=== PATIENT | male | born 1960 | race Caucasian/White ===

== ENCOUNTER 2017-02-12 06:20 | Day surgery (SDC) | payer BC ==
[2017-02-11 11:15] LABS: BASOPHILS 0.4 %; BASOPHILS ABSOLUTE 0.04 10/3/uL (0.0-0.16); EOSINOPHILS 5.4 %; EOSINOPHILS ABSOLUTE 0.58 10/3/uL (0.0-0.53); HEMATOCRIT 44.5 % (40.0-51.0); HEMOGLOBIN 15.2 g/dL (13.6-17.8); IMMATURE GRANULOCYTES 0.2 %; IMMATURE GRANULOCYTES ABSOLUTE 0.02 10/3/uL (0.0-0.11); LYMPHOCYTES 23.6 %; LYMPHOCYTES ABSOLUTE 2.55 10/3/uL (0.67-4.30); MEAN CORPUS HGB CONC 34.2 g/dL (32.0-36.0); MEAN CORPUSCULAR HEMOGLOB 32.5 pg (26.0-34.0); MEAN CORPUSCULAR VOLUME 95.3 fL (80-100); MEAN PLATELET VOLUME 9.1 fL (9.2-13.0); MONOCYTES 7.9 %; MONOCYTES ABSOLUTE 0.86 10/3/uL (0.21-1.20); NEUTROPHILS 62.5 %; NEUTROPHILS ABSOLUTE 6.77 10/3/uL (2.02-8.40); PLATELET COUNT 189 10/3/uL (150-400); RBC DISTRIBUTION WIDTH 12.6 % (12.0-16.0); RED CELL COUNT 4.67 10/6/uL (4.7-6.1)
[2017-02-11 11:16] LABS: MANUAL DIFF NO %; WHITE BLOOD CELLS 10.8 10/3/uL (4.5-10.5)
[2017-02-11 11:30] LABS: BUN (BLOOD UREA NITROGEN) 15 MG/DL (6-23); CALCIUM, SERUM 9.3 MG/DL (8.5-10.4); CHLORIDE, SERUM 104 MMOL/L (96-112); CO2 (CARBON DIOXIDE) 30 MMOL/L (24-34); CREATININE 1.08 MG/DL (0.70-1.30); GFR AFRICAN AMERICAN 88 ML/MIN (>=60); GFR NON AFRICAN AMERICAN 76 ML/MIN (>=60); POTASSIUM, SERUM 4.5 MMOL/L (3.5-5.3); SODIUM, SERUM 141 MMOL/L (135-148)
[2017-02-11 11:32] LABS: GLUCOSE, SERUM 115 MG/DL (60-99)
--- NOTE | ~2017-02-12 | OP ---
Record Of Operation [address] [facility] [place]. [address] NAME: THUY BUI : 60 STATUS : REG [facility] [place] PAT#: [id number] AGE: 56 ADM/REG DATE : 02/12/17 MR#: [id number] REPORT SERV DATE: 02/12/17 DICTATED BY: ALFREDO LAGUNA DATE: 02/12/17 REPORT STATUS : Draft TRANSCRIBED BY: MODL DATE: 02/12/17 DATE OF PROCEDURE: 02/12/2017 PREOPERATIVE DIAGNOSES: 1. Bilateral chronic frontal sinusitis. 2. Bilateral chronic maxillary sinusitis. 3. Bilateral left chronic ethmoid sinusitis. 4. Left nasal polyp. POSTOPERATIVE DIAGNOSES: 1. Bilateral chronic frontal sinusitis. 2. Bilateral chronic maxillary sinusitis. 3. Bilateral left chronic ethmoid sinusitis. 4. Left nasal polyp. PROCEDURES: 1. Bilateral endoscopic frontal sinusotomy. 2. Bilateral endoscopic maxillary sinusotomy. 3. Left endoscopic anterior ethmoidectomy. 4. Left endoscopic polypectomy. SURGEON: Alfredo Laguna MD. ANESTHESIA: General endotracheal anesthesia. ESTIMATED BLOOD LOSS: 10 mL. COMPLICATIONS: None. SPECIMEN: 1. Right nasal contents. 2. Left nasal contents. FINDINGS: The patient had a large ethmoid polyp on the left that filled in nasal cavity completely, went all the way back to the nasopharynx. There was also polypoid disease on the right side in the same area. I was able to successfully open both frontal and both maxillary sinuses well and I decided to remove the left anterior ethmoid as it was almost completely taken over with polyp disease. STATEMENT OF MEDICAL NECESSITY: This is a 56-year-old male who came to me with history of right ear pressure, facial pressure, and recurrent sinusitis. I treated him with a 3-week course of antibiotics and steroids which he minimally improved. CT scan following that showed disease in the frontal sinus outflow tracts bilaterally as well as the maxillary sinuses. It also revealed a large polyp in the left side which was also visible on nasal endoscopy in clinic. Given this failure of conservative medical management, I recommended the above procedure. Record Of Operation [place] [facility] [place]. [address] NAME: THUY BUI : 60 STATUS : REG [facility] [place] PAT#: [id number] AGE: 56 ADM/REG DATE : 02/12/17 MR#: [id number] REPORT SERV DATE: 02/12/17 DICTATED BY: ALFREDO LAGUNA DATE: 02/12/17 REPORT STATUS : Draft TRANSCRIBED BY: HERACLIO DATE: 02/12/17 STATEMENT OF OPERATION: The patient was brought to the operating room in supine position, transferred to the operating table. All pressure points were padded and general endotracheal anesthesia was established. Both sides of the nose were prepared with 4% cocaine-soaked pledgets. They were allowed to stay in place while the patient was draped out. The right side was removed first then injected 3 mL of 1% lidocaine with epinephrine in the lateral nasal wall, root of the middle turbinate and face of the middle turbinate. I then gently fractured the turbinate medially. There was some polypoid disease in the frontal sinus outflow tract region. I was able to advance balloon and lighted wire into the frontal sinus. I had successful focal transillumination. I inflated the frontal sinus outflow tract twice to 12 atmospheres for 3 seconds each. I also removed a small polyp from the outflow tract. Then with the 45-degree scope, I was able to visualize a wide open frontal sinus tract all the way into the frontal sinus. Next, I cannulated the right maxillary sinus. Again with the same technique, I performed two separate inflations. I got good blanching and opening of the uncinate process on that side with verification with tansillumination. Next, I turned my attention to the right side of the nose. I placed Afrin-soaked pledgets in the right side of the nose. I turned my attention to the left side of the nose. Immediately, evident in the anterior nasal cavity with a large polyp. Using a microdebrider, I removed this almost completely while keeping intact inferior turbinate, the middle turbinate, and the nasal septum. Once this was removed, I gently medialized the middle turbinate. There was some polypoid disease in the anterior ethmoid area as well. I was able to cannulate the frontal sinus again with focal point transillumination. I dilated the frontal sinus outflow tract twice to 12 atmospheres for 3 seconds each. Again with the 45-degree scope, I was able to verify wide open passageway to the frontal sinus. Then, I also cannulated the maxillary sinus. Again, there was some polypoid tissue there that I removed gently. I dilated it up to 12 atmospheres for 3 seconds twice to really subblanching and anteriorilizing of the uncinate process. Then because most of the anterior ethmoid sinus on that side was polypoid, I removed it gently using microdebrider through cutting forceps. Once this was concluded, I placed some Stammberger Sinu-Foam on the left side in the anterior ethmoid cavity and also applied Afrin-soaked pledgets. This, concluded the case. At the end, polyps had been completely removed. The anterior ethmoids were removed and both frontal sinuses and maxillary sinuses had been opened endoscopically. This concluded the case. The pledgets were removed. The stomach and oropharynx were suctioned clear of blood and fluid in orogastric tube. The patient was turned over to Anesthesia where he awoke, was extubated, and transferred to the PACU in stable condition. PS/MODL Alfredo Laguna MD / [id number] CC: Alfredo Laguna MD Record Of [address] [address] NAME: THUY BUI : 60 STATUS : REG [facility] [place] PAT#: [id number] AGE: 56 ADM/REG DATE : 02/12/17 MR#: [id number] REPORT SERV DATE: 02/12/17 DICTATED BY: ALFREDO LAGUNA DATE: 02/12/17 REPORT STATUS : Draft TRANSCRIBED BY: MODL DATE: 02/12/17 Jeremy Meléndez MD
[~2017-02-12 06:20] MED LIST: ALTACE10 MG PO; ASAB PO; COQ-1010 MG PO; LODOSYN
== END 2017-02-12 23:59 | disposition home or self-care (01) ==
LOC: MSC 06:20
PROVIDERS: Otolaryngology
PROC: 09BV4ZZ Excision of Left Ethmoid Sinus, Percutaneous Endoscopic Approach (ICD-10-PCS; 2017-02-12)
PROC: 09BU4ZZ Excision of Right Ethmoid Sinus, Percutaneous Endoscopic Approach (ICD-10-PCS; 2017-02-12)
PROC: 099R4ZZ Drainage of Left Maxillary Sinus, Percutaneous Endoscopic Approach (ICD-10-PCS; 2017-02-12)
PROC: 099Q4ZZ Drainage of Right Maxillary Sinus, Percutaneous Endoscopic Approach (ICD-10-PCS; 2017-02-12)
PROC: 09BK4ZX Excision of Nasal Mucosa and Soft Tissue, Percutaneous Endoscopic Approach, Diagnostic (ICD-10-PCS; principal; 2017-02-12 07:15)
PROC: 09BT4ZZ Excision of Left Frontal Sinus, Percutaneous Endoscopic Approach (ICD-10-PCS; 2017-02-12 07:15)
PROC: 09BS4ZZ Excision of Right Frontal Sinus, Percutaneous Endoscopic Approach (ICD-10-PCS; 2017-02-12 07:15)
DX: J32.8 Other chronic sinusitis (principal); J33.9 Nasal polyp, unspecified; I10 Essential (primary) hypertension; J45.909 Unspecified asthma, uncomplicated; Z79.82 Long term (current) use of aspirin; Z79.899 Other long term (current) drug therapy; Z98.890 Other specified postprocedural states
CPT/HCPCS: 80048; 85025; 88305; 93005; A9270-GY; C1726; J0690; J2250; J2370; J2405; J2710; J3010